=== PATIENT | female | born 1975 | race Caucasian/White ===

== ENCOUNTER 2019-01-21 15:54 | Emergency (ER) | payer MEDICAID ==
[~2019-01-21] VITALS: Ht 154.9 cm; Wt 95.3 kg
[2019-01-21 15:55] VITALS: BP_SYST 135
[2019-01-21 18:06] VITALS: BP_SYST 135
== END 2019-01-21 18:06 | disposition home or self-care (01) ==
LOC: SED 15:54
DX: H02.845 Edema of left lower eyelid (principal); H02.844 Edema of left upper eyelid; H66.91 Otitis media, unspecified, right ear; R03.0 Elevated blood-pressure reading, without diagnosis of hypertension
CPT/HCPCS: 99283